=== PATIENT | female | born 1960 | race Caucasian/White ===

== ENCOUNTER 2019-01-25 05:15 | Day surgery (SDC) ==
[2019-01-21 11:04] LABS: BASO# 0.03 X1000 (0.0-0.2); BASO% 0.4 % (0.0-0.8); EOS# 0.21 X1000 (0.0-0.7); EOS% 2.7 % (0.0-10.0); HEMATOCRIT 43.3 % (37.0-47.0); HEMOGLOBIN 14.3 g/dL (12.0-16.0); IMM GRAN# 0.03 X1000 (0.0-0.04); IMM GRAN% 0.4 % (0.0-0.5); LYMPH# 2.17 X1000 (1.2-3.4); LYMPH% 27.5 % (20.5-51.1); MCV 84.9 FL (81-99); MONO# 0.65 X1000 (0.11-0.59); MONO% 8.2 % (1.7-9.3); MPV 9.1 FL (7.4-10.4); NEUT# 4.81 X1000 (1.4-6.5); NEUT% 60.8 % (42.2-75.2); PLT 376 X1000 (130-400); RDW 13.1 % (11.5-14.5)
--- NOTE | 2019-01-24 13:34 | HISTORY AND PHYSICAL ---
DATE OF SURGERY: 01/25/2019 HISTORY: The patient is a 58-year-old female who has been followed by Dr. Jeimy Perdomo, who has been having increasing problems with symptomatic pelvic organ prolapse. She was initially seen approximately 3 months ago. The leading edge at that time was +1 in the supine position with weak coughing. Her cervix is somewhat who hooded so Point D is 2 to 3 cm higher than the anterior lip of the cervix. All the posterior measurements were negative. We discussed pessary use at length, and she really was not interested in pessary use. We discussed [place] tissue repair, and we discussed sacrocolpopexy with hysterectomy. She is because of her young age, sexual activity, and overall activity of life, she is wishing to proceed with the gold standard procedure in terms of length of correction. She is wishing to proceed with a supracervical hysterectomy abdominal sacrocolpopexy, and midurethral sling. The risks and benefits have been discussed at length. PAST MEDICAL HISTORY: Positive for hypercholesterolemia, type 2 diabetes, Raynaud disease, and Sjogren disease. PAST SURGICAL HISTORY: Positive for diagnostic laparoscopy, a benign breast biopsy on the right, D and C of the uterus, and TMJ surgery bilaterally. S OBSTETRICAL HISTORY: He is noted to be a para 30-1-2 with 2 vaginal deliveries, both being greater than 9 pounds. CURRENT MEDICATIONS: Pravastatin 20, omeprazole, Linzess 290, Addis D and p.r.n. medicines ALLERGIES: She has no known drug allergies. FAMILY HISTORY: Positive for breast cancer in her maternal grandmother and colon cancer in a paternal aunt. She denies any tobacco use, drug usage, or alcohol use. PHYSICAL EXAMINATION: WEIGHT: BMI is 28. HEENT: Normocephalic, atraumatic. PERRLA. EOMI. No thyromegaly. CARDIOVASCULAR: Regular rate and rhythm without murmur, gallop, rub. PULMONARY: Clear to auscultation and percussion. ABDOMEN: Soft. GENITOURINARY: The examination as noted above. NEUROLOGICAL: Afocal. EXTREMITIES: Without clubbing, cyanosis, or edema. ASSESSMENT AND PLAN: The patient admitted at this time for robotic supracervical hysterectomy with abdominal sacrocolpopexy and midurethral sling with Obtryx. The risks and benefits have been discussed at length. She understands and wishes to proceed. cc: Omar Batista MD
[2019-01-25] MEDS ORDERED: LR 1,000 ML ONE ×2 (05:37→11:42)
[2019-01-25] MEDS ORDERED: KEFZOL 1 GM/D5W 2 GM/100 ML IVPB ONE (05:37)
[2019-01-25] MEDS ORDERED: PEPCID ONE (05:37)
[2019-01-25] MEDS ORDERED: TRANSDERM-SCOP ONE (05:37)
[2019-01-25] MEDS ORDERED: REGLAN ONE (05:37)
[2019-01-25] MEDS ORDERED: HURRICAINE SPRAY (DOSE) ONE (06:02)
[2019-01-25] MEDS ORDERED: QUELICIN (DOSE) ONE (06:16)
[2019-01-25] MEDS ORDERED: XYLOCAINE-MPF 2% ONE ×2 (06:16→08:10)
[2019-01-25] MEDS ORDERED: ROBINUL ONE (06:16)
[2019-01-25] MEDS ORDERED: NORCURON ONE ×2 (06:16→08:32)
[2019-01-25] MEDS ORDERED: STERILE WATER INJ. ONE ×2 (06:16→08:32)
[2019-01-25] MEDS ORDERED: VERSED ONE (06:17)
[2019-01-25] MEDS ORDERED: FENTANYL ONE ×2 (06:17→07:58)
[2019-01-25] MEDS ORDERED: DIPRIVAN 1% ONE (06:18)
[2019-01-25] MEDS ORDERED: LUBRIFRESH PM OPH OINTMENT ONE (06:36)
--- NOTE | 2019-01-25 06:39 | H&P REVIEW ---
H&P Update H&P Review: H&P was reviewed and patient was examined, No change has occurred in the patient's condition
[2019-01-25] MEDS ORDERED: MARCAINE 0.25% PF/EPI 1:200,000 ONE (06:51)
[2019-01-25] MEDS ORDERED: D10W 1,000 ML ONE (06:52)
[2019-01-25] MEDS ORDERED: DECADRON ONE (07:16)
[2019-01-25] MEDS ORDERED: ZOFRAN ONE (07:16)
[2019-01-25] MEDS ORDERED: PHENERGAN ONE (07:36)
[2019-01-25] MEDS ORDERED: NEOSTIGMINE ONE (07:39)
[2019-01-25] MEDS ORDERED: TORADOL ONE (08:58)
[2019-01-25] MEDS ORDERED: LASIX ONE (10:21)
[2019-01-25 11:38] LABS: URINE SOURCE CATH
[2019-01-25 11:51] LABS: BILIRUBIN URINE NEGATIVE (NEGATIVE); BLOOD URINE NEGATIVE (NEGATIVE); COLOR STRAW; GLUCOSE URINE NEGATIVE (NEGATIVE); KETONE URINE NEGATIVE (NEGATIVE); LEUKOCYTES URINE NEGATIVE (NEGATIVE); NITRITE URINE NEGATIVE (NEGATIVE); PROTEIN URINE NEGATIVE (NEGATIVE); SP GRAVITY URINE 1.007; TURBIDITY URINE CLEAR (CLEAR); UROBILINOGEN URINE NORMAL (NORMAL)
[2019-01-25 11:52] LABS: UR EPITHELIAL CELLS <10 /HPF (<10); URINE BACTERIA NEGATIVE /HPF; URINE RBC <10 /HPF (<10); URINE WBC <10 /HPF (<10)
[2019-01-25] MEDS ORDERED: ZOFRAN ODT PO PRN (12:45)
[2019-01-25] MEDS ORDERED: LINZESS PO PRN (12:45)
--- NOTE | 2019-01-25 14:27 | PROGRESS NOTE ---
DATE: 01/25/2019 SUBJECTIVE: Patient is alert and oriented x2. She is lying in bed. Her is with her. OBJECTIVE: Afebrile. Vital signs are stable. Urine output is clear. She is having a little bit of discomfort.Abdomen: Soft. All incisions are surgically sealed with glue. Urine output is clear. ASSESSMENT AND PLAN: Routine postoperative care. We will remove her Lynne in the morning, and begin voiding trial. If she has a good evening and is doing well, will be discharged home tomorrow after completion of her voiding trial. cc: Omar Batista MD
[2019-01-25] MEDS: COLACE PO SCH ×2 (14:34→23:00)
[2019-01-25] MEDS: PERIDEX MT SCH ×2 (14:34→23:00)
[2019-01-25] MEDS: NORCO-5 PO PRN ×2 (14:34→23:36)
--- NOTE | 2019-01-25 15:05 | OPERATIVE NOTE ---
PROCEDURE DATE: 01/25/2019 PREOPERATIVE DIAGNOSIS: Symptomatic pelvic organ prolapse. POSTOPERATIVE DIAGNOSIS: Symptomatic pelvic organ prolapse. PROCEDURE: 1. Robotic supracervical hysterectomy. 2. Abdominal sacrocolpopexy. 3. Midurethral sling with Obtryx. 4. Extensive lysis of adhesions. SURGEON: Omar Batista MD. SOFTWARE PROGRAM MANAGER: Margarette Arellano. ANESTHESIA: General. ESTIMATED BLOOD LOSS: 50 mL. HISTORY: The patient is a 58-year-old female with POP-Q stage II prolapse who is having worsening symptoms. She was referred to me by Dr. Jeimy Perdomo. OPERATIVE FINDINGS: The patient was found to have moderate to dense adhesions involving the descending colon beginning right at the iliac crest and extending all the way down. She had adhesions around the tube and ovary involving the colon as well. On the right-hand side she was found to have the right ovary somewhat partially covered by peritoneum secondary to adhesive disease. She had small endometriosis implants that were burned out in appearance. Vaginally she had POP-Q stage II prolapse with most of it being apical and anterior. She had a normal upper abdominal exam. DESCRIPTION OF PROCEDURE: Patient taken to operating room, placed supine position. After adequate general anesthesia obtained she is placed in the [facility] and her abdomen and vagina was prepped and draped in the usual fashion. At this time, a supraumbilical incision was made and after infiltration 0.25% Marcaine with epinephrine a 12 mm port and sheath were introduced through this incision into the abdominal cavity. Pelvic contents were visualized therefore insufflation with CO2 to an intraabdominal pressure of 14 was performed. The left- sided ports were placed under direct visualization after infiltration with local anesthetic and then the right-sided ports were placed in a similar fashion with the assistance port in the right upper quadrant. On the left-hand side arm 3 was very close to a lot of adhesions anteriorly from the descending colon. We used arm 1 to perform extensive lysis of adhesions to have more mobilization in that area and less risk of any injury as equipment was placed and removed. Upon doing this, we then turned our attention towards the descending colon. We had already placed the patient in the deep Trendelenburg position and docked the robot. We had already placed EEA sizers within the vagina and the rectum as well as a Lynne catheter within the bladder before we began the adhesiolysis. After having docked and using the right arm to perform adhesiolysis as dictated above, we then continued with our dissection laterally because the descending colon was pulled down into this area and made bowel retrieval out of this area very difficult. We spent the 1st 15 to 20 minutes doing nothing but adhesiolysis from the descending colon. She had almost a partial obliteration posteriorly because of adhesions anterior and posterior from the colon. Most of these deeper cul- de-sac adhesions were more filmy in nature. The left tube and ovary was mobilized with adhesiolysis giving better room in this area as well. The right tube and ovary though not involved in bowel was partially covered in peritoneum from adhesions. However, both fallopian tubes were noted to be open at the fimbria and I was not concerned regarding possible hydrosalpinx. At this time, we then turned our attention towards actually performing the hysterectomy. Starting at the left tube and ovary we clamped and cauterized the left uteroovarian pedicle and cut through it. We continued through the round ligament and then down the broad ligament in clamp, cauterize and cut fashion down to the level of the peritoneal fold anteriorly. We began our dissection anteriorly to drop the bladder below. At this time Dr. Arellano sat down at the console and performed the same procedure on the right-hand side of the uterus using a clamp, cauterize and cut fashion through the uteroovarian pedicle, the round ligament and then down the cardinal ligament. She then continued with the anterior dissection dropping the bladder below the operative site and continued with the vesicovaginal dissection as well. At this point, we then proceeded toward truncation of the uterus. Dr. Arellano did this as well and she extirpated the corpus of the uterus from the cervical stump leaving approximately 4 cm of cervical stump present. The corpus of the uterus was then placed in the appendiceal bed. Dr. Arellano then continued with the dissection in the anterior portion developing the vesicovaginal space. This time I sat back down at the console and began our posterior dissection posteriorly. This was easily performed down to close to the perineal body in the posterior compartment and we did not have near the adhesive disease in this section as we did along the left side. At this time we turned our attention towards the promontory. I deviated the colon laterally exposing the sacral promontory and Dr. Arellano sat back down at the at the console and she began with the sacral promontory dissection. She used bipolar cautery to cauterize the vein that was in the operative site. We could easily visualize the anterior longitudinal ligament. She then created a tunnel going down the right-hand side for placement of the mesh. Ureter was well above our operative site of the tunnel creation. At this time I trimmed the mesh to fit for our appropriate defects and Dr. Arellano continued to sit at the console. The mesh was introduced. She started initially with the posterior arm throwing sutures through the vaginal mucosa and then through the posterior arm with the knot being in between the mesh and the vaginal mucosa. This was done posteriorly without any difficulty. Approximately 8 sutures were placed posteriorly. She placed approximately 4 sutures through the cervical stroma at the apex and then placed approximately 8 sutures anteriorly in a similar fashion. She did run into some bleeding along the left-hand side and we had to perform some cautery and I actually had to provide hemostasis in this area with a little bit more cautery because of her dissection and suture placement. Upon doing this the third arm was then brought up through the anterior longitudinal ligament. She placed 2 sutures through the third arm of the mesh into the anterior longitudinal ligament and trimmed off the excessive mesh that was left at the third arm. At this time we had excellent support apically. We had no evidence of any abnormalities Dr. Arellano then continued with performing the reperitonealization starting at the promontory and working our way down. She closed anterior to posterior pairing being careful to avoid ureteral involvement as we closed. She got down to the bifurcation of the mesh and then pursestring. As she was trying to pursestring she actually broke this suture. In doing this, it tore through the area near the right ovary that was somewhat buried and so because of this and some bleeding I actually sat back down at the console and corrected this area however we had to start with a new V-Loc suture and I did the reperitonealization at this time. The ureter was out of the operative site. However, the right ovary and fallopian tube is definitely going to be a challenge if this should surgically need to be removed not only because of the mesh, but because of the preoperative placement somewhat retroperitoneal in this area due to adhesions. I suspect there is a degree of old PID that resulted in this preoperatively. At this point, copious amounts of irrigation was performed and we dropped our pressures. Hemostasis was observed. Our blood loss was determined to be approximately 30-40 mL. At this point, we turned our attention towards closure. The robot was undocked. All equipment was removed. We used a Esteban-Wade closure system to close the supraumbilical incision as well as the assistance port with 0 Vicryl ligature using that for the fascia and deep layers. Nursing Services closed all skin incisions with a subcuticular 4.0 and surgical glue was utilized for skin approximation. Vaginally Dr. Arellano performed our midurethral sling grasping the urethra proximally and distally, injecting approximately 8 to 10 mL of 0.25% Marcaine with epinephrine. She made a sagittal incision and dissected up towards the 10 o'clock and 2 o'clock positions of the ischial pubic ramus. Based on the bony landmark of the ramus as well as the insertion of the adductor longus a stab incision was initially made on the left-hand side. Halo device was introduced through this incision to the street cleaning equipment operator's finger which directed out. The mesh was attached to it, it was retracted back through the skin. I continued to assist Dr. Arellano with this. She performed the same procedure on the right-hand side with removal of the mesh through the skin. Lynne catheter was then removed and cystoscope was placed. The bladder was filled with 250 mL of D10. Both ureters were effluxing urine. There was no evidence of any mucosal abnormalities. There was no evidence of any suture material or mesh material. Cystoscope was removed and a Jaye clamp was placed the midurethral position. The tape was brought up to the Jaye clamp. The blue tag was excised and the sheaths were easily removed. There was no tension on the mesh whatsoever. Midurethral incision was closed with a running 2.0 Vicryl ligature. Lynne catheter was replaced. The patient was also noted to have a granuloma in the posterior vaginal wall. This was grasped with Allis clamps and sharply opened with a surgical knife. We used Metzenbaum scissors to trim out a portion of the wall of this area. We closely inspected the remaining vaginal mucosa. There was no evidence of any suture material or mesh material and no bleeding. Decision was made to terminate the procedure. All equipment was removed. Sponge count, instrument count, needle counts correct x3. Packs and drains were Lynne. The patient was taken out of the low adjustable stirrups. She was awakened, taken recovery room vital signs stable. cc: Omar Batista MD
[2019-01-25] MEDS: TORADOL IV SCH ×2 (17:32→23:00)
[2019-01-25] MEDS: LR 1,000 ML IV SCH ×2 (20:09→23:30)
[2019-01-25] MEDS ORDERED: PRAVACHOL PO SCH (21:00)
[2019-01-26] MEDS: TORADOL IV SCH ×2 (05:20→11:43)
[2019-01-26] MEDS ORDERED: PRILOSEC PO SCH (07:00)
[2019-01-26] MEDS: COLACE PO SCH (08:09)
[2019-01-26] MEDS: PERIDEX MT SCH (08:09)
--- NOTE | 2019-01-26 09:11 | DISCHARGE SUMMARY ---
ADMISSION DATE: 01/25/2019 DISCHARGE DATE: 01/26/2019 PRINCIPAL DIAGNOSIS: Pelvic organ prolapse. PROCEDURE: [place] supracervical hysterectomy, abdominal sacrocolpopexy, and mid urethral sling with Obtryx. SURGEON: Omar Batista MD HISTORY: The patient is a 58-year-old female who is followed by Dr. Perdomo in the [facility] who is having increasing problems with symptomatic pelvic prolapse. She was admitted for definitive surgical intervention after refusal of pessary management. HOSPITAL COURSE: The patient underwent the above-stated procedure. Blood loss at that time was approximately 50 mL. Postoperative course has been uncomplicated. She is currently undergoing voiding trial. She will be discharged home with instructions for followup in 2 to 3 weeks. DISCHARGE MEDICATIONS: 1. [place]. 2. Toradol. 3. Colace. DISCHARGE INSTRUCTIONS: She was instructed a regular diet and decreased activity. cc: Omar Batista MD MTDD
[2019-01-26 12:11] VITALS: BP 114/61
== END 2019-01-26 12:32 | disposition home or self-care (01) ==
LOC: OR 05:15 → INTOOBSV 12:42 → 4N 12:42 → OR 01-26 11:08
PROVIDERS: ATTEND Obstetrics & Gynecology
CPT/HCPCS: 81001; 85025; 88307; 94761; 94799; A9270; C1771; C1781; J0330; J0690; J1100; J1885; J1940; J2250; J2405; J2550; J3010; J7120; S2900